=== PATIENT | female | born 1945 | race Caucasian/White ===

== ENCOUNTER → 2020-06-16 10:16 | Outpatient (CLI) | payer OTHER, SELFPAY ==
--- NOTE | ~2020-06-16 | XR_ITS ---
EXAMINATION: XR chest 2V EXAM DATE: 06/16/2020 10:35 INDICATION: Intermittent shortness of breath . TECHNIQUE: Frontal and lateral projections of the chest obtained and reviewed. Comparison is made to prior examination from 07/13/2010. FINDINGS: The lungs are clear. There are no pleural effusions. The cardiomediastinal silhouette is within normal limits. There is no pneumothorax suspected. There are bony degenerative changes. IMPRESSION: Unremarkable chest x-ray exam. Reviewed, dictated and finalized at location A.
== END ==
PROVIDERS: PCP Family Medicine Adolescent Medicine; Visit Provider Physician Assistant
DX: R06.02 Shortness of breath (principal)
CPT/HCPCS: 71046